=== PATIENT | male | born 1965 | race Caucasian/White ===

== ENCOUNTER 2016-06-13 16:33 | Emergency (ER) | payer MEDICAID ==
[2016-06-13 17:09] VITALS: TEMP 99
[2016-06-13] MEDS ORDERED: SODIUM CHLORIDE 0.9% 1,000 ML IV STA (17:30)
--- NOTE | 2016-06-13 17:40 | ED ---
General Adult HPI - General Chief complaint: Headache Stated complaint: Headache/Tremors/Alcohol Withdrawl Time Seen by Provider: 06/13/16 17:10 Source: patient, RN notes reviewed Mode of arrival: ambulatory Limitations: no limitations - History of Present Illness Initial comments: This is a 50-year-old male who states he is an alcoholic. He states he stopped drinking yesterday at 4 PM since that time he's had quite a bit of shakes has not eaten or drank anything. Patient states he started having a headache which was pretty moderate in nature but he states he normally doesn't get headaches very checked his blood pressure was elevated they came to the emergency department. He also noted that he was tachycardic. Patient states he is not nauseated and has not vomited. Patient denies any chest pain or palpitations. Patient denies abdominal pain patient denies nausea vomiting or diarrhea. Patient denies any numbness or weakness. Patient denies any dizziness lightheadedness or near syncopal episode. - Related Data Home Medications Medication Instructions Recorded Confirmed Citalopram Hydrobromide [CeleXA] 20 mg PO DAILY 06/13/16 06/13/16 Omeprazole [PriLOSEC] 20 mg PO BID 06/13/16 06/13/16 Previous Rx's Medication Instructions Recorded Diazepam [Valium] 10 mg PO Q4H #5 tab 06/13/16 cloNIDine HCL [Catapres] 0.2 mg PO TID #5 tablet 06/13/16 Allergies Allergy/AdvReac Type Severity Reaction Status Date / Time No Known Allergies Allergy Verified 06/13/16 18:28 Review of Systems ROS Statement: Those systems with pertinent positive or pertinent negative responses have been documented in the HPI. ROS Other: All systems not noted in ROS Statement are negative. Past Medical History Past Medical History: GERD/Reflux History of Any Multi-Drug Resistant Organisms: None Reported Past Surgical History: Hernia Repair Past Psychological History: Depression Smoking Status: Current every day smoker Past Alcohol Use History: Heavy Past Drug Use History: None Reported General Exam - General Exam Comments Initial Comments: GENERAL: Patient is well-developed and well-nourished. Patient is nontoxic and well- hydrated and is in mild distress. Patient is tremulous. ENT: Neck is soft and supple. No significant lymphadenopathy is noted. Oropharynx is clear. Moist mucous membranes. Neck has full range of motion without eliciting any pain. EYES: The sclera were anicteric and conjunctiva were pink and moist. Extraocular movements were intact and pupils were equal round and reactive to light. Eyelids were unremarkable. PULMONARY: Unlabored respirations. Good breath sounds bilaterally. No audible rales rhonchi or wheezing was noted. CARDIOVASCULAR: Patient is tachycardic at 130 beats a minute ABDOMEN: Soft and nontender with normal bowel sounds. No palpable organomegaly was noted. There is no palpable pulsatile mass. SKIN: Skin is clear with no lesions or rashes and otherwise unremarkable. NEUROLOGIC: Patient is alert and oriented x3. Cranial nerves II through XII are grossly intact. Motor and sensory are also intact. Normal speech, volume and content. Symmetrical smile. MUSCULOSKELETAL: Normal extremities with adequate strength and full range of motion. No lower extremity swelling or edema. No calf tenderness. LYMPHATICS: No significant lymphadenopathy is noted PSYCHIATRIC: Normal psychiatric evaluation. Limitations: no limitations Course Vital Signs 06/13/16 06/13/16 06/13/16 17:06 18:57 19:22 Temperature 99.0 F Pulse Rate 134 H 130 H Respiratory 18 18 Rate Blood Pressure 212/125 207/131 203/125 O2 Sat by Pulse 99 98 Oximetry 06/13/16 06/13/16 19:57 21:00 Temperature Pulse Rate 133 H 107 H Respiratory 20 20 Rate Blood Pressure 204/117 169/103 O2 Sat by Pulse 98 98 Oximetry Medical Decision Making - Medical Decision Making EKG shows sinus tachycardia at 129 bpm. It was on a 30 QRS is 80 QT interval 320 QTC is 468. Patient's EKG shows no ST segment elevation or depression or T- wave abnormality are noted. Patient received hydralazine 10 and Valium 10 for his withdrawal and his high blood pressure. I went back and he was still shaking and his blood pressure was still elevated is already repeated those doses. Patient continued shaking and have high blood pressure that was better site ordered him 20 of labetalol and gave him 10 more Valium. Patient has told me consistently the whole time that he will not be staying in the hospital overnight and he will go home and follow up with the rehabilitation Center tomorrow. Patient received 1 g of magnesium sulfate because his magnesium was low. I went back into reevaluate the patient he was feeling better and again still refused to stay. - Lab Data Result diagrams: 06/13/16:34 06/13/16 17:34 Lab Results 06/13/16 06/13/16 06/13/16 Range/Units 17:34 17:34 17:34 WBC 8.2 (3.8-10.6) k/uL RBC 5.35 (4.30-5.90) m/uL Hgb 15.9 (13.0-17.5) gm/dL Hct 49.1 (39.0-53.0) % MCV 91.7 (80.0-100.0) fL MCH 29.7 (25.0-35.0) pg MCHC 32.4 (31.0-37.0) g/dL RDW 15.1 (11.5-15.5) % Plt Count 187 (150-450) k/uL Neutrophils % 75 % Lymphocytes % 14 % Monocytes % 7 % Eosinophils % 1 % Basophils % 1 % Neutrophils # 6.2 (1.3-7.7) k/uL Lymphocytes # 1.1 (1.0-4.8) k/uL Monocytes # 0.6 (0-1.0) k/uL Eosinophils # 0.1 (0-0.7) k/uL Basophils # 0.1 (0-0.2) k/uL PT (9.0-12.0) sec INR (<1.1) APTT (22.0-30.0) sec Sodium 140 (137-145) mmol/L Potassium 3.8 (3.5-5.1) mmol/L Chloride 100 (98-107) mmol/L Carbon Dioxide 26 (22-30) mmol/L Anion Gap 14 mmol/L BUN 12 (9-20) mg/dL Creatinine 0.76 (0.66-1.25) mg/dL Est GFR (MDRD) Af Amer >60 (>60 ml/min/1.73 sqM) Est GFR (MDRD) Non-Af >60 (>60 ml/min/1.73 sqM) Glucose 94 (74-99) mg/dL Calcium 9.8 (8.4-10.2) mg/dL Magnesium 1.2 L (1.6-2.3) mg/dL Total Bilirubin 0.9 (0.2-1.3) mg/dL AST 33 (17-59) U/L ALT 63 (21-72) U/L Alkaline Phosphatase 89 (38-126) U/L Total Creatine Kinase 132 (55-170) U/L CK-MB (CK-2) 0.8 (0.0-2.4) ng/mL CK-MB (CK-2) Rel Index 0.6 Troponin I <0.012 (0.000-0.034) ng/mL Total Protein 7.7 (6.3-8.2) g/dL Albumin 4.7 (3.5-5.0) g/dL Serum Alcohol <10 mg/dL 06/13/16 Range/Units 17:34 WBC (3.8-10.6) k/uL RBC (4.30-5.90) m/uL Hgb (13.0-17.5) gm/dL Hct (39.0-53.0) % MCV (80.0-100.0) fL MCH (25.0-35.0) pg MCHC (31.0-37.0) g/dL RDW (11.5-15.5) % Plt Count (150-450) k/uL Neutrophils % % Lymphocytes % % Monocytes % % Eosinophils % % Basophils % % Neutrophils # (1.3-7.7) k/uL Lymphocytes # (1.0-4.8) k/uL Monocytes # (0-1.0) k/uL Eosinophils # (0-0.7) k/uL Basophils # (0-0.2) k/uL PT 11.2 (9.0-12.0) sec INR 1.1 (<1.1) APTT 25.8 (22.0-30.0) sec Sodium (137-145) mmol/L Potassium (3.5-5.1) mmol/L Chloride (98-107) mmol/L Carbon Dioxide (22-30) mmol/L Anion Gap mmol/L BUN (9-20) mg/dL Creatinine (0.66-1.25) mg/dL Est GFR (MDRD) Af Amer (>60 ml/min/1.73 sqM) Est GFR (MDRD) Non-Af (>60 ml/min/1.73 sqM) Glucose (74-99) mg/dL Calcium (8.4-10.2) mg/dL Magnesium (1.6-2.3) mg/dL Total Bilirubin (0.2-1.3) mg/dL AST (17-59) U/L ALT (21-72) U/L Alkaline Phosphatase (38-126) U/L Total Creatine Kinase (55-170) U/L CK-MB (CK-2) (0.0-2.4) ng/mL CK-MB (CK-2) Rel Index Troponin I (0.000-0.034) ng/mL Total Protein (6.3-8.2) g/dL Albumin (3.5-5.0) g/dL Serum Alcohol mg/dL Disposition Clinical Impression: Hypertensive urgency, Alcohol withdrawal, Hypomagnesemia Disposition: HOME SELF-CARE Instructions: Hypertension (ED), Alcohol Withdrawal (ED) Prescriptions: Diazepam [Valium] 10 mg PO Q4H #5 tab cloNIDine HCL [Catapres] 0.2 mg PO TID #5 tablet Referrals: Brad Cox DO [Primary Care Provider] - 1-2 days Time of Disposition: 20:51
[2016-06-13] MEDS: DIAZEPAM 5 MG/ML 2 ML SYRINGE IVP STA ×2 (17:42→19:19)
[2016-06-13] MEDS ORDERED: SODIUM CHLORIDE 0.9% 1,000 ML with MVI, ADULT NO.4 WITH VIT K 10 ML, THIAMINE 100 MG, F... IV ONE ×4 (18:00)
--- NOTE | 2016-06-13 18:02 | XR ---
EXAMINATION TYPE: XR chest 2V DATE OF EXAM: 06/13/2016 5:58 PM COMPARISON: NONE HISTORY: Chest pain TECHNIQUE: Frontal and lateral views of the chest are obtained. FINDINGS: There is no focal air space opacity. No evidence for pnuemothorax.No pleural effusion. The cardiac silhouette size is within normal limits. The osseous structures are grossly intact. IMPRESSION: 1. No acute cardiopulmonary process.
[2016-06-13 18:03] LABS: Basophils # (A) 0.1 k/uL (0-0.2); Basophils % (A) 1 %; CH 31.3; CHCM 34.2; Eosinophils # (A) 0.1 k/uL (0-0.7); Eosinophils % (A) 1 %; HCT 49.1 % (39.0-53.0); HDW 2.17; HGB 15.9 gm/dL (13.0-17.5); Luc # (Auto) 0.14; Luc % (Auto) 2; Lymphocytes # (A) 1.1 k/uL (1.0-4.8); Lymphocytes % (A) 14 %; MCH 29.7 pg (25.0-35.0); MCHC 32.4 g/dL (31.0-37.0); MCV 91.7 fL (80.0-100.0); Mean Platelet Volume 8.1; Monocytes # (A) 0.6 k/uL (0-1.0); Monocytes % (A) 7 %; Neutrophils # (A) 6.2 k/uL (1.3-7.7); Neutrophils % (A) 75 %; RBC 5.35 m/uL (4.30-5.90); RDW 15.1 % (11.5-15.5); WBC 8.2 k/uL (3.8-10.6); WBC (Perox) 8.03
[2016-06-13 18:11] LABS: ALT 63 U/L (21-72); AST 33 U/L (17-59); Alcohol <10 mg/dL; Alkaline Phosphatase 89 U/L (38-126); Anion Gap 14 mmol/L; Blood Urea Nitrogen 12 mg/dL (9-20); Calcium 9.8 mg/dL (8.4-10.2); Carbon Dioxide 26 mmol/L (22-30); Chloride 100 mmol/L (98-107); Glucose 94 mg/dL (74-99); INR 1.1 (<1.1); Magnesium 1.2 mg/dL (1.6-2.3); Non-African American GFR(MDRD) >60 (>60 ml/min/1.73 sqM); Partial Thromboplastin Time 25.8 sec (22.0-30.0); Potassium 3.8 mmol/L (3.5-5.1); Prothrombin Time 11.2 sec (9.0-12.0); Sodium 140 mmol/L (137-145); Total Bilirubin 0.9 mg/dL (0.2-1.3); Total Protein 7.7 g/dL (6.3-8.2)
--- NOTE | 2016-06-13 18:25 | CT ---
EXAMINATION TYPE: CT brain wo con DATE OF EXAM: 06/13/2016 6:13 PM COMPARISON: NONE HISTORY: Patient complains of headache and high blood pressure. CT DLP: 809.2 mGycm Automated exposure control for dose reduction was used. FINDINGS: There is no acute intracranial hemorrhage, mass effect, or midline shift identified. The ventricles and sulci are within normal limits in size. The globes are intact and the visualized sinuses are juana ar. IMPRESSION: No acute intracranial hemorrhage, mass effect, or midline shift is seen.
[2016-06-13 18:48] LABS: Troponin I <0.012 ng/mL (0.000-0.034)
[2016-06-13 18:53] LABS: Creatine Kinase 132 U/L (55-170); Creatine Kinase MB 0.8 ng/mL (0.0-2.4)
[2016-06-13] MEDS: hydrALAZINE HCL 20 MG/ML 1 ML VIAL IVP STA ×2 (18:55→19:18)
[2016-06-13 19:58] VITALS: RESP 20
[2016-06-13] MEDS ORDERED: LABETALOL SYRINGE 5 MG/ML IVP STA (20:03)
[2016-06-13] MEDS ORDERED: MAGNESIUM SULFATE-D5W PMX 1 GM in DEXTROSE/WATER 1 100ML.BAG IVPB ONE (20:26)
[2016-06-13] MEDS ORDERED: hydrALAZINE HCL 20 MG/ML 1 ML VIAL IVP STA (20:32)
[2016-06-13] MEDS ORDERED: DIAZEPAM 5 MG/ML 2 ML SYRINGE IVP STA (20:35)
[2016-06-13] MEDS ORDERED: DIAZEPAM 5 MG TAB PO STA (21:25)
[2016-06-13] MEDS ORDERED: cloNIDine HCL 0.2 MG TAB PO STA (21:26)
[2016-06-13 22:10] VITALS: BP 168/105; PULSE 105
== END 2016-06-13 22:10 | disposition home or self-care (01) ==
LOC: EC 16:33
DX: I16.0 Hypertensive urgency (principal); I10 Essential (primary) hypertension; F10.239 Alcohol dependence with withdrawal, unspecified; R00.0 Tachycardia, unspecified; E83.42 Hypomagnesemia; K21.9 Gastro-esophageal reflux disease without esophagitis; F32.9 Major depressive disorder, single episode, unspecified; Z79.899 Other long term (current) drug therapy; F17.200 Nicotine dependence, unspecified, uncomplicated
CPT/HCPCS: 36415; 93005; 80053; 82550; 82553; 83735; 84484; 85025; 85610; 85730; 80320; 71020; 70450; 96375 ×3; 96376 ×2; 96365; 96361 ×3; 99284; J0360; J3411; J3360; J3475